=== PATIENT | female | born 1970 | race Caucasian/White ===

== ENCOUNTER 2016-09-14 10:16 | Emergency (ER) | payer OTHER, BC ==
[2016-09-14] MEDS ORDERED: Zofran 4 MG/2 ML VIAL IV ONE (11:08)
[2016-09-14] MEDS ORDERED: Hydromorphone 1 mg/ml Ampule IV ONE (11:08)
[2016-09-14] MEDS ORDERED: Sodium Chloride 0.9% 1000 ML 1,000 ML IV STA (11:08)
[2016-09-14] MEDS ORDERED: Zofran 4 MG/2 ML VIAL ONE (11:11)
[2016-09-14] MEDS ORDERED: Hydromorphone 1 mg/ml Ampule ONE (11:12)
[2016-09-14] MEDS ORDERED: Sodium Chloride 0.9% 1000 ML 1,000 ML ONE (11:12)
[2016-09-14] MEDS ORDERED: DUONEB 0.5-3 MG/3 ml Neb IH ONE ×2 (11:13→11:23)
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
[2016-09-14 11:31] LABS: BASOPHIL % 0.4 % (0.0-0.4); Eosinophil % 4.4 % (0.00-5.0); Granulocytes % 52.7 % (36.0-66.0); Lymphocytes % 27.7 % (24.0-44.0); Mean Cell Volume 83.9 fl (78-100); Mean Corpuscular Hemoglobin 27.7 pg (26-32); Mean Platelet Volume 10.8 fl (6-9.5); Monocytes % 14.8 % (0.0-12.0); Platelet Count 341 K/mm3 (150-450); Red Blood Count 5.02 M/mm3 (4.1-5.4); Red Cell Distribution Width 14.2 % (11.5-14.0); White Blood Count 6.9 K/mm3 (4.0-10.5)
[2016-09-14 12:12] LABS: ALBUMIN 3.3 g/dL (3.4-5.0); ALKALINE PHOSPHATASE 65 U/L (46-116); ANION GAP 11.8 MEQ/L (5-15); BLOOD UREA NITROGEN 14 mg/dL (9-20); CHLORIDE 106 mEq/L (98-107); Carbon Dioxide 25.6 mEq/L (21-32); Glucose 97 MG/DL (70-110); LIPASE 83 U/L (73-393); Potassium 4.3 mEq/L (3.5-5.1); SGOT/AST 28 U/L (15-37); SGPT/ALT 30 U/L (12-78); SODIUM 139 mEq/L (136-145); Total Protein 7.8 gm/dL (6.4-8.2)
[2016-09-14 12:13] LABS: TROPONIN 0.275 ng/ml (0.000-0.056)
[2016-09-14 12:37] VITALS: BP 151/78; PULSE 69
[2016-09-14 12:41] LABS: Bilirubin NEGATIVE (NEGATIVE); Blood 250 Ery/ul (0-5); COMPLETE URINE MICROSCOPIC? YES; Collection Type CATH; Glucose NEGATIVE (NEGATIVE); Leukocyte Esterase NEGATIVE (NEGATIVE)
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
[2016-09-14 12:48] LABS: Mucus MANY /HPF (NEGATIVE); WBC 0-2 /HPF (0-5)
[2016-09-14 12:49] LABS: Bacteria FEW /HPF (NEGATIVE); Epithelial Cells FEW /HPF (FEW)
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
[2016-09-14 13:07] VITALS: O2SAT 98
== END 2016-09-14 13:32 | disposition home or self-care (01) ==
LOC: ED 10:16
DX: S20.211D Contusion of right front wall of thorax, subsequent encounter (principal); S30.1XXD Contusion of abdominal wall, subsequent encounter; R07.81 Pleurodynia; R07.89 Other chest pain; V89.2XXS Person injured in unspecified motor-vehicle accident, traffic, sequela
CPT/HCPCS: 36000; 36415; 51702; 71260; 74177; 80053; 81000; 82150; 82550; 83690; 84484; 85025; 93005; 93041; 94640; 96360; 96374; 96375; 99284; J1170; J2405; A9270-GY

== ENCOUNTER 2021-09-10 20:19 | Observation (INO) | payer BC ==
[2021-09-10 21:16] LABS: Absolute Neutrophil Ct (ANC) 5.52 x10^3/uL (1.4-6.9); Basophil (Absolute #) 0.07 x10^3/uL (0-0.4); Eosinophil (Absolute #) 0.45 x10^3/uL (0-0.5); Hematocrit 41.9 % (35-47); Hemoglobin 13.6 g/dL (12.0-16.0); Lymphocyte (Absolute #) 2.06 x10^3/uL (1.0-4.6); Lymphocytes % 22.8 % (24.0-44.0); Mean Corpuscular Hemoglobin 27.3 pg (26-32); Mean Corpuscular Hgb Concent. 32.5 g/dL (32-36); Monocyte (Absolute #) 0.91 x10^3/uL (0.0-1.3); Monocytes % 10.1 % (0.0-12.0); Platelet Count 288 x10^3/uL (150-450); Red Blood Count 4.99 x10^6/uL (4.1-5.4)
--- NOTE | 2021-09-10 21:18 | ERPHSYRPT ---
- History of Present Illness Time Seen by Provider: 09/10/21 20:38 Source: patient Exam Limitations: no limitations Patient Subjective Stated Complaint: pt states she had hypertension on wednesday, states she has been feelin pain in abdomen and lower back, and feeling nauseat ed, states she had one bout of dark stool Triage Nursing Assessment: pt states she is having pain in abdomen at 5/20 Physician History: Patient is a 50-year-old female presents to our ED for evaluation of lower abdominal and low back pain. Patient also concerned with hypertension. Patient states that she stopped taking her blood pressure medication on her own. Patient states her blood pressure has been running normal and she figured she did not need the blood pressure medication anymore. Patient states her blood pressure was observed to be elevated on Wednesday. Patient then resumed her blood pressure medication. However since then she has been feeling weak. Fatigued. Patient lower abdominal pain was associated with a dark stool. Abdominal pain rated 5 out of 10. No trauma. No fever. Patient states her urine output is decreased. No vaginal discharge or pelvic pain. Patient denies history of the same. Patient voices no other complaints or concerns at this time. Timing/Duration: day(s) (2 days) Severity: moderate Modifying Factors: Improves With: nothing Associated Symptoms: weakness (Generalized weakness), No nausea, No vomiting (Loose stools. Patient's last bowel movement was dark patient states that look like charcoal.), No cough, No chills, No chest pain, No fever, No headaches, No loss of appetite, No syncope, No seizure Allergies/Adverse Reactions: No Known Drug Allergies Allergy (Unverified 09/14/16 10:40) Home Medications: Escitalopram Oxalate [Lexapro 10 MG] 10 mg PO DAILY 09/14/16 [History] Levothyroxine Sodium 150 Mcg [Synthroid 150 Mcg] 150 mcg PO DAILY 09/14/16 [History] norgestimate-ethinyl estradioL [Rph-Ox-Gsjjurxzu Tablet] 1 each PO UD 09/14/16 [History] Hx Tetanus, Diphtheria Vaccination/Date Given: Yes (up to date) Hx Influenza Vaccination/Date Given: No Hx Pneumococcal Vaccination/Date Given: No Travel Risk - International Travel Have you traveled outside of the country in past 3 weeks: No - Coronavirus Screening Are you exhibiting any of the following symptoms?: No Close contact with a COVID-19 positive Pt in past 14-21 Days: No - Vaccine Status Have you recieved a Covid-19 vaccination: Yes Privacy Attorney: Moderna - Vaccination Dates Date of 2cond Vaccination (if applicable): unknown - Review of Systems Constitutional: No Symptoms, No Fever, No Chills Eyes: No Symptoms Ears, Nose, & Throat: No Symptoms Respiratory: No Symptoms, No Cough, No Dyspnea Cardiac: No Symptoms, No Chest Pain, No Edema, No Syncope Abdominal/Gastrointestinal: No Symptoms, No Abdominal Pain, No Nausea, No Vomiting, No Diarrhea Genitourinary Symptoms: No Symptoms, No Dysuria Musculoskeletal: No Symptoms, No Back Pain, No Neck Pain Skin: No Symptoms, No Rash Neurological: No Symptoms, No Dizziness, No Focal Weakness, No Sensory Changes Psychological: No Symptoms Endocrine: No Symptoms Hematologic/Lymphatic: No Symptoms Immunological/Allergic: No Symptoms All Other Systems: Reviewed and Negative - Past Medical History Pertinent Past Medical History: Yes Endocrine Medical History: Hypothyroidism Psycho-Social History: Depression - Past Surgical History Past Surgical History: Yes Gastrointestinal: Hernia Repair Female Surgical History: Dilation & Curettage, Section - Social History Smoking Status: Former smoker Exposure to second hand smoke: No Drug Use: none Patient Lives Alone: No - Nursing Vital Signs Nursing Vital Signs: Initial Vital Signs Temperature 98.1 F 09/10/21 20:28 Pulse Rate 55 L 09/10/21 20:28 Respiratory Rate 20 09/10/21 20:28 Blood Pressure 192/93 09/10/21 20:28 O2 Sat by Pulse Oximetry 98 09/10/21 20:28 Pain Scale Pain Intensity 0 - Physical Exam General Appearance: no apparent distress, alert Eye Exam: PERRL/EOMI, eyes nml inspection Ears, Nose, Throat Exam: normal ENT inspection, TMs normal, pharynx normal, moist mucous membranes Neck Exam: normal inspection, non-tender, supple, full range of motion Respiratory Exam: normal breath sounds, lungs clear, airway intact, No respiratory distress Cardiovascular Exam: regular rate/rhythm, normal heart sounds, normal peripheral pulses Gastrointestinal/Abdomen Exam: soft, normal bowel sounds, No tenderness, No mass Back Exam: normal inspection, normal range of motion, No CVA tenderness, No vertebral tenderness Extremity Exam: normal inspection, normal range of motion, pelvis stable Neurologic Exam: alert, oriented x 3, cooperative, normal mood/affect, sensation nml, No motor deficits Skin Exam: normal color, warm, dry, No rash Lymphatic Exam: No adenopathy SpO2 Interpretation: normal SpO2: 98 O2 Delivery: Room Air - Course Nursing assessment & vital signs reviewed: Yes EKG Interpreted by Me: RATE (45), Sinus Luis Armando, NORMAL AXIS, NORMAL INTERVALS - CT Exams Abdomen/Pelvis CT Interpretation: Tele-radiologist Report (Small to moderate umbilical hernia containing some edematous omentum without bowel. Minimal diverticulosis without diverticulitis mildly prominent fluid in the small bowel without dilation suggestive of enteritis. Right kidney nonobstructing calyx stone) Ordered Tests: Active Orders 24 hr Category Date Time Status Collections Manager STAT Care 09/10/21 21:11 Active EKG-ER Only STAT Care 09/10/21 21:11 Active IV Insertion STAT Care 09/10/21 21:11 Active Pulse Oximetry (ED) STAT Care 09/10/21 21:11 Active ABDOMEN AND PELVIS W/0 CONTRAS [CT] Stat Exams 09/10/21 22:03 Taken CBC W DIFF Stat Lab 09/10/21 21:00 Completed CMP Stat Lab 09/10/21 21:00 Completed HCG,QUALITATIVE URINE Stat Lab 09/10/21 21:00 Completed TROPONIN Q3H Lab 09/10/21 21:00 Completed TROPONIN Q3H Lab 09/11/21 00:37 Received TROPONIN Q3H Lab 09/11/21 03:15 Ordered TROPONIN Q3H Lab 09/11/21 06:15 Ordered TROPONIN Q3H Lab 09/11/21 09:15 Ordered TSH [TSH, 3RD Generation] Stat Lab 09/10/21 21:00 Completed UA W/RFX CULTURE Stat Lab 09/10/21 21:00 Completed Medication Summary Generic Name Dose Route Start Last Admin Trade Name Freq PRN Reason Stop Dose Admin Sodium Chloride 1,000 mls @ 100 mls/hr 09/10/21 21:15 09/10/21 21:31 Sodium Chloride 0.9% 1000 Ml IV 10/10/21 21:14 100 mls/hr .Q10H SHAYE Administration Discontinued Medications Generic Name Dose Route Start Last Admin Trade Name Freq PRN Reason Stop Dose Admin Hydrocortisone Sodium Succinate 100 mg 09/10/21 23:43 09/10/21 23:53 Hydrocortisone Sod Succinate 100 Mg/Vial Vial IV 09/10/21 23:44 100 mg STAT ONE Administration Hydrocortisone Sodium Succinate Confirm 09/10/21 23:48 Hydrocortisone Sod Succinate 100 Mg/Vial Vial Administered 09/10/21 23:49 Dose 100 mg .ROUTE .STK-MED ONE Levothyroxine Sodium 300 mcg 09/10/21 23:51 09/11/21 00:08 Levothyroxine Sodium 200 Mcg/Vial Vial IV 09/10/21 23:52 200 mcg ONCE STA Administration Morphine Sulfate 2 mg 09/10/21 21:19 09/10/21 21:31 Morphine Sulfate 2 Mg/Ml Inj IV 09/10/21 21:20 2 mg STAT ONE Administration Morphine Sulfate Confirm 09/10/21 21:27 Morphine Sulfate 2 Mg/Ml Inj Administered 09/10/21 21:28 Dose 2 mg .ROUTE .STK-MED ONE Lab/Rad Data: Laboratory Result Diagrams 09/10/21 21:00 09/10/21 21:00 Laboratory Results 09/10/21 09/10/21 09/10/21 Range/Units 23:55 21:00 21:00 WBC (4.0-10.5) x10^3/uL RBC (4.1-5.4) x10^6/uL Hgb (12.0-16.0) g/dL Hct (35-47) % MCV (78-100) fL MCH (26-32) pg MCHC (32-36) g/dL RDW (11.5-14.0) % Plt Count (150-450) x10^3/uL MPV (7.5-11.0) fL Gran % (36.0-66.0) % Immature Gran % (Auto) (0.00-0.4) % Nucleat RBC Rel Count (0.00-0.1) % Eos # (Auto) (0-0.5) x10^3/uL Immature Gran # (Auto) (0.00-0.03) x10^3u/L Absolute Lymphs (auto) (1.0-4.6) x10^3/uL Absolute Monos (auto) (0.0-1.3) x10^3/uL Absolute Nucleated RBC (0.00-0.01) x10^3u/L Lymphocytes % (24.0-44.0) % Monocytes % (0.0-12.0) % Eosinophils % (0.00-5.0) % Basophils % (0.0-0.4) % Absolute Granulocytes (1.4-6.9) x10^3/uL Basophils # (0-0.4) x10^3/uL Sodium (137-145) mmol/L Potassium (3.5-5.1) mmol/L Chloride (98-107) mmol/L Carbon Dioxide (22-30) mmol/L Anion Gap (5-15) MEQ/L BUN (7-17) mg/dL Creatinine (0.52-1.04) mg/dL Estimated GFR ML/MIN Glucose (74-106) mg/dL Calcium (8.4-10.2) mg/dL Total Bilirubin (0.2-1.3) mg/dL AST (14-36) U/L ALT (0-35) U/L Alkaline Phosphatase (38-126) U/L Troponin I (0.000-0.034) ng/mL Serum Total Protein (6.3-8.2) g/dL Albumin (3.5-5.0) g/dL TSH 3rd Generation 10.200 H (0.47-4.68) mIU/L Urinalys Dipstick Clnc MAIN LAB Urine Color YELLOW (YELLOW) Urine Appearance CLEAR (CLEAR) Urine pH 5.5 (5-6) Ur Specific [place] 1.025 (1.005-1.025) POC Urine Protein Conf NEGATIVE (Negative) Urine Ketones NEGATIVE (NEGATIVE) Urine Nitrite NEGATIVE (NEGATIVE) Urine Bilirubin NEGATIVE (NEGATIVE) Urine Urobilinogen 0.2 (0-1) mg/dL Urine Leukocytes NEGATIVE (NEGATIVE) Urine WBC (Auto) 0-2 (0-5) /HPF Urine RBC (Auto) 0-2 (0-2) /HPF U Epithel Cells (Auto) RARE (FEW) /HPF Urine Bacteria (Auto) RARE (NEGATIVE) /HPF Urine RBC SMALL (0-5) Jared/ul Urine Mucus (Auto) SLIGHT (NEGATIVE) /HPF Ur Culture Indicated? NO Urine Glucose NEGATIVE (NEGATIVE) mg/dL Urine HCG, Qual (Negative) Influenza Type A Ag NEGATIVE (NEGATIVE) Influenza Type B Ag NEGATIVE (NEGATIVE) RSV (PCR) NEGATIVE (Negative) SARS-CoV-2 (PCR) POSITIVE A (NEGATIVE) 09/10/21 09/10/21 09/10/21 Range/Units 21:00 21:00 21:00 WBC 9.0 (4.0-10.5) x10^3/uL RBC 4.99 (4.1-5.4) x10^6/uL Hgb 13.6 (12.0-16.0) g/dL Hct 41.9 (35-47) % MCV 84.0 (78-100) fL MCH 27.3 (26-32) pg MCHC 32.5 (32-36) g/dL RDW 14.0 (11.5-14.0) % Plt Count 288 (150-450) x10^3/uL MPV 11.0 (7.5-11.0) fL Gran % 61.0 (36.0-66.0) % Immature Gran % (Auto) 0.3 (0.00-0.4) % Nucleat RBC Rel Count 0.0 (0.00-0.1) % Eos # (Auto) 0.45 (0-0.5) x10^3/uL Immature Gran # (Auto) 0.03 (0.00-0.03) x10^3u/L Absolute Lymphs (auto) 2.06 (1.0-4.6) x10^3/uL Absolute Monos (auto) 0.91 (0.0-1.3) x10^3/uL Absolute Nucleated RBC 0.00 (0.00-0.01) x10^3u/L Lymphocytes % 22.8 L (24.0-44.0) % Monocytes % 10.1 (0.0-12.0) % Eosinophils % 5.0 (0.00-5.0) % Basophils % 0.8 (0.0-0.4) % Absolute Granulocytes 5.52 (1.4-6.9) x10^3/uL Basophils # 0.07 (0-0.4) x10^3/uL Sodium 137 (137-145) mmol/L Potassium 4.1 (3.5-5.1) mmol/L Chloride 105 (98-107) mmol/L Carbon Dioxide 24 (22-30) mmol/L Anion Gap 13.1 (5-15) MEQ/L BUN 15 (7-17) mg/dL Creatinine 0.76 (0.52-1.04) mg/dL Estimated GFR > 60.0 ML/MIN Glucose 89 (74-106) mg/dL Calcium 9.0 (8.4-10.2) mg/dL Total Bilirubin 0.50 (0.2-1.3) mg/dL AST 35 (14-36) U/L ALT 27 (0-35) U/L Alkaline Phosphatase 88 (38-126) U/L Troponin I < 0.012 (0.000-0.034) ng/mL Serum Total Protein 7.7 (6.3-8.2) g/dL Albumin 4.1 (3.5-5.0) g/dL TSH 3rd Generation (0.47-4.68) mIU/L Urinalys Dipstick Clnc Urine Color (YELLOW) Urine Appearance (CLEAR) Urine pH (5-6) Ur Specific [place] (1.005-1.025) POC Urine Protein Conf (Negative) Urine Ketones (NEGATIVE) Urine Nitrite (NEGATIVE) Urine Bilirubin (NEGATIVE) Urine Urobilinogen (0-1) mg/dL Urine Leukocytes (NEGATIVE) Urine WBC (Auto) (0-5) /HPF Urine RBC (Auto) (0-2) /HPF U Epithel Cells (Auto) (FEW) /HPF Urine Bacteria (Auto) (NEGATIVE) /HPF Urine RBC (0-5) Jared/ul Urine Mucus (Auto) (NEGATIVE) /HPF Ur Culture Indicated? Urine Glucose (NEGATIVE) mg/dL Urine HCG, Qual (Negative) Influenza Type A Ag (NEGATIVE) Influenza Type B Ag (NEGATIVE) RSV (PCR) (Negative) SARS-CoV-2 (PCR) (NEGATIVE) 09/10/21 Range/Units 21:00 WBC (4.0-10.5) x10^3/uL RBC (4.1-5.4) x10^6/uL Hgb (12.0-16.0) g/dL Hct (35-47) % MCV (78-100) fL MCH (26-32) pg MCHC (32-36) g/dL RDW (11.5-14.0) % Plt Count (150-450) x10^3/uL MPV (7.5-11.0) fL Gran % (36.0-66.0) % Immature Gran % (Auto) (0.00-0.4) % Nucleat RBC Rel Count (0.00-0.1) % Eos # (Auto) (0-0.5) x10^3/uL Immature Gran # (Auto) (0.00-0.03) x10^3u/L Absolute Lymphs (auto) (1.0-4.6) x10^3/uL Absolute Monos (auto) (0.0-1.3) x10^3/uL Absolute Nucleated RBC (0.00-0.01) x10^3u/L Lymphocytes % (24.0-44.0) % Monocytes % (0.0-12.0) % Eosinophils % (0.00-5.0) % Basophils % (0.0-0.4) % Absolute Granulocytes (1.4-6.9) x10^3/uL Basophils # (0-0.4) x10^3/uL Sodium (137-145) mmol/L Potassium (3.5-5.1) mmol/L Chloride (98-107) mmol/L Carbon Dioxide (22-30) mmol/L Anion Gap (5-15) MEQ/L BUN (7-17) mg/dL Creatinine (0.52-1.04) mg/dL Estimated GFR ML/MIN Glucose (74-106) mg/dL Calcium (8.4-10.2) mg/dL Total Bilirubin (0.2-1.3) mg/dL AST (14-36) U/L ALT (0-35) U/L Alkaline Phosphatase (38-126) U/L Troponin I (0.000-0.034) ng/mL Serum Total Protein (6.3-8.2) g/dL Albumin (3.5-5.0) g/dL TSH 3rd Generation (0.47-4.68) mIU/L Urinalys Dipstick Clnc Urine Color (YELLOW) Urine Appearance (CLEAR) Urine pH (5-6) Ur Specific [place] (1.005-1.025) POC Urine Protein Conf (Negative) Urine Ketones (NEGATIVE) Urine Nitrite (NEGATIVE) Urine Bilirubin (NEGATIVE) Urine Urobilinogen (0-1) mg/dL Urine Leukocytes (NEGATIVE) Urine WBC (Auto) (0-5) /HPF Urine RBC (Auto) (0-2) /HPF U Epithel Cells (Auto) (FEW) /HPF Urine Bacteria (Auto) (NEGATIVE) /HPF Urine RBC (0-5) Jared/ul Urine Mucus (Auto) (NEGATIVE) /HPF Ur Culture Indicated? Urine Glucose (NEGATIVE) mg/dL Urine HCG, Qual NEGATIVE (Negative) Influenza Type A Ag (NEGATIVE) Influenza Type B Ag (NEGATIVE) RSV (PCR) (Negative) SARS-CoV-2 (PCR) (NEGATIVE) - Progress Progress: improved Progress Note: Case discussed with Dr. Frank covering Dr. Ross. Dr. Frank accepts admission to observation. Patient is COVID-positive. Patient will be admitted to the COVID unit. TSH 10.2 and spite of taking Synthroid. Patient has profound generalized weakness. This is likely due to hypothyroidism. However COVID positivity may be contributing to her generalized weakness or may have exacerbated the underlying hypothyroidism. However she has no other manifestations of viral syndrome. Patient received Solu-Cortef as well as a 200 mcg dose of Synthroid. Patient will be admitted to the COVID unit. Plan of care discussed with patient. She agrees to admission [facility] for further evaluation and treatment. She voices no other complaints concerns at this time. Portions of this note were created with voice recognition technology. There may be grammatical, spelling, punctuation or sound alike errors 09/11/21 01:[address] Akshat Will see patient in: hospital (observation) Counseled pt/family regarding: drug and/or alcohol abuse, lab results, diagnosis - Departure Departure Disposition: Observation Clinical Impression: Hypothyroidism, Hypertension, Bradycardia, Generalized weakness, Nephrolithiasi s, Diverticulosis, Enteritis, Umbilical hernia, SARS-CoV-2 positive Condition: Stable Critical Care Time: No Referrals: MAGDALENO ROSS [Primary Care Provider] - Follow up/PCP as directed
[2021-09-10] MEDS ORDERED: MORPHINE SULFATE 2 MG INJ IV ONE (21:19)
[2021-09-10 21:25] LABS: Appearance CLEAR (CLEAR); Bacteria RARE /HPF (NEGATIVE); Epithelial Cells RARE /HPF (FEW); Mucus SLIGHT /HPF (NEGATIVE); RBC 0-2 /HPF (0-2); WBC 0-2 /HPF (0-5)
[2021-09-10 21:26] LABS: Bilirubin NEGATIVE (NEGATIVE); Dipstick done @ ? MAIN LAB; Glucose NEGATIVE (NEGATIVE); Ketones NEGATIVE (NEGATIVE); Nitrite NEGATIVE (NEGATIVE); Ph 5.5 (5-6); Protein,Urine Dip NEGATIVE (Negative); RBC SMALL Ery/ul (0-5); Specific Gravity 1.025 (1.005-1.025); Urobilinogen 0.2 mg/dL (0-1)
[2021-09-10 21:27] LABS: Urine Cultured Indicated? NO
[2021-09-10] MEDS ORDERED: MORPHINE SULFATE 2 MG INJ ONE (21:27)
[2021-09-10] MEDS: Sodium Chloride 0.9% 1000 ML 1,000 ML IV SCH (21:31)
[2021-09-10 21:32] LABS: ALBUMIN 4.1 g/dL (3.5-5.0); ALKALINE PHOSPHATASE 88 U/L (38-126); ANION GAP 13.1 MEQ/L (5-15); BLOOD UREA NITROGEN 15 mg/dL (7-17); CHLORIDE 105 mmol/L (98-107); Carbon Dioxide 24 mmol/L (22-30); Creatinine 1 0.76 mg/dL (0.52-1.04); EST GLOMERULAR FILTRATION RATE > 60.0 ML/MIN; Glucose 89 mg/dL (74-106); Potassium 4.1 mmol/L (3.5-5.1); SGOT/AST 35 U/L (14-36); SGPT/ALT 27 U/L (0-35); SODIUM 137 mmol/L (137-145); Total Protein 7.7 g/dL (6.3-8.2)
[2021-09-10] MEDS ORDERED: solu-CORTEF 100MG IV ONE (23:43)
[2021-09-10] MEDS ORDERED: solu-CORTEF 100MG ONE (23:48)
[2021-09-10] MEDS ORDERED: Synthroid 200 MCG INJECTION IV STA (23:51)
[2021-09-11 00:43] LABS: INFLUENZA A NEGATIVE (NEGATIVE); INFLUENZA B NEGATIVE (NEGATIVE); RESPIRATORY SYNCTIAL VIRUS NEGATIVE (Negative)
[2021-09-11 00:47] LABS: SARS-CoV-2 Xpert Express POSITIVE (NEGATIVE)
[2021-09-11] MEDS ORDERED: ENOXAPARIN SODIUM SQ ONE (01:13)
[2021-09-11] MEDS ORDERED: MORPHINE SULFATE 4 MG INJ IV PRN (01:35)
[2021-09-11] MEDS ORDERED: TYLENOL 325 MG PO PRN (01:35)
[2021-09-11 03:52] LABS: ALBUMIN 3.8 g/dL (3.5-5.0); ALKALINE PHOSPHATASE 84 U/L (38-126); ANION GAP 12.7 MEQ/L (5-15); BLOOD UREA NITROGEN 13 mg/dL (7-17); CHLORIDE 103 mmol/L (98-107); Calcium 9.2 mg/dL (8.4-10.2); Carbon Dioxide 25 mmol/L (22-30); Creatinine 1 0.77 mg/dL (0.52-1.04); EST GLOMERULAR FILTRATION RATE > 60.0 ML/MIN; Glucose 129 mg/dL (74-106); Potassium 4.2 mmol/L (3.5-5.1); SGOT/AST 29 U/L (14-36); SGPT/ALT 27 U/L (0-35); SODIUM 137 mmol/L (137-145)
[2021-09-11 05:12] LABS: Hemoglobin 13.9 g/dL (12.0-16.0); Mean Cell Volume 83.8 fL (78-100); Mean Corpuscular Hemoglobin 27.1 pg (26-32); Mean Corpuscular Hgb Concent. 32.3 g/dL (32-36); Mean Platelet Volume 11.1 fL (7.5-11.0); Platelet Count 291 x10^3/uL (150-450); Red Blood Count 5.13 x10^6/uL (4.1-5.4); Red Cell Distribution Width 14.1 % (11.5-14.0); White Blood Count 8.6 x10^3/uL (4.0-10.5)
[2021-09-11] MEDS: Sodium Chloride 0.9% 1000 ML 1,000 ML IV SCH ×2 (06:44→16:59)
[2021-09-11 07:42] VITALS: O2SAT 97
--- NOTE | 2021-09-11 08:44 | XRAY ---
Indication: Right abdomen/flank pain. Nausea. Multiple contiguous axial images obtained through the abdomen and pelvis without contrast. Comparison: September 14, 2016. Lung bases clear. Heart borderline enlarged. Noncontrasted stomach and bowel loops are nonobstructed. A few jejunal bowel loops now demonstrates mild circumferential wall thickening favoring enteritis. Appendix not visualized. No free fluid/air. Minimal sigmoid diverticulosis without diverticulitis. New nonobstructing right renal punctate calculus. Remaining liver, gallbladder, pancreas, spleen, adrenal glands, kidneys, ureters, bladder, and uterus are unremarkable for noncontrast exam. Minimal aortoiliac calcifications without AAA. Osseous structures intact again with bilateral L5 spondylolysis with very minimal anterolisthesis. Minimally enlarging small periumbilical fatty ventral hernia. Impression: 1. New mild enteritis without complications. Minimal diverticulosis without diverticulitis 2. New nonobstructing right renal punctate calculus. 3. Again chronic findings including fatty periumbilical ventral hernia and L5 spondylolysis with very minimal listhesis. Comment: Preliminary interpretation made by [facility]. No critical discrepancy.
[2021-09-11] MEDS ORDERED: DESYREL 50 MG PO PRN (09:30)
[2021-09-11] MEDS ORDERED: Lotensin PO SCH (10:00)
[2021-09-11] MEDS ORDERED: ENOXAPARIN SODIUM SQ SCH (10:00)
[2021-09-11] MEDS ORDERED: Pepcid 20 MG VIAL IV SCH (10:00)
[2021-09-11] MEDS ORDERED: Lexapro PO SCH (10:00)
[2021-09-11] MEDS ORDERED: SYNTHROID 150 MCG PO SCH (10:00)
[2021-09-11 16:35] VITALS: BP 146/81; PULSE 54
--- NOTE | 2021-09-12 12:45 | ECHO ---
DATE OF PROCEDURE: 09/11/2021 CLINICAL INFORMATION: Bradycardia. The M-mode 2D, and Doppler echocardiogram including color flow Doppler shows the left ventricle is normal in size. There is no thrombus present. The heart rate is 45 beats/minute. The wall thickness is normal. There is normal contractility of the left ventricle. The ejection fraction is calculated to be 66%. There is evidence of possible impaired left ventricular relaxation. The right ventricle is grossly normal. The left atrium is normal in size. The interatrial septum is intact. The right atrium is normal. The aortic valve opens well. There is no aortic regurgitation. There is mitral valve leaflet thickening associated with mild mitral regurgitation. There is mild tricuspid regurgitation. The right ventricular systolic pressure is calculated to be 32 mm of [place]. The pulmonic valve is not well visualized. The aortic root is normal. There is a small posterior pericardial effusion present. IMPRESSION: 1) NORMAL CONTRACTILITY OF THE LEFT VENTRICLE. 2) POSSIBLE IMPAIRED LEFT VENTRICULAR RELAXATION. 3) MILD MITRAL REGURGITATION. 4) MILD TRICUSPID REGURGITATION. 5) MILD PULMONARY HYPERTENSION. 6) MILD POSTERIOR PERICARDIAL EFFUSION.
--- NOTE | 2021-10-07 11:27 | SSS ---
DISCHARGE DIAGNOSES: 1) HYPERTENSION. 2) POSITIVE FOR COVID. HISTORY: The patient is a 50-year-old white female who presented to the emergency room with complaints of lower abdominal pain. She is concerned about hypertension. She had stopped taking her medication on her own. The patient reports that she noted that the blood pressure had been elevated on the Wednesday prior to admission. She appeared weak and fatigued. The patient reports exam was associated with dark stool, abdominal discomfort was rated at 5 out of 10 initially. PAST MEDICAL/SURGICAL HISTORY: Significant for hypothyroidism and depression. The patient previously had hernia repair, D&C and section in the past. HOME MEDICATIONS: Includes Lexapro 10 mg a day, Synthroid 150 mcg daily. She takes a control pill. ALLERGIES: NKDA. PHYSICAL EXAMINATION: The patient's vital signs on admission showed temperature 98.1F, pulse 55, respiratory rate 20 and blood pressure 192/93. O2 saturation 98%. HEENT: Normocephalic, atraumatic. Pupils equal round reactive to light. Extraocular movements intact. Oropharynx is pink and moist. NECK: Supple without lymphadenopathy, thyromegaly or JVD. CHEST: Clear to auscultation. HEART: Regular rate and rhythm without murmurs, rubs or gallops. ABDOMEN: Soft. No palpable masses. EXTREMITIES: Without cyanosis, clubbing or edema. NEUROLOGIC: The patient is alert and oriented x3. No focal deficits noted. LAB DATA AND TESTS: Revealed CT evaluation showing some moderate to small umbilical hernia containing some edematous omentum without bowel. There was minimal diverticulosis without diverticulitis and mild prominent fluid in the small bowel without dilation suggestive of enteritis. There was a nonobstructive kidney stone in the right kidney calyx. The patient's hemoglobin was 13.6, white count 9.6, PLT count 288,000. Electrolytes were normal. BUN 15, creatinine 0.76. UA was normal. Her TSH somewhat elevated at 10.2. She was negative for influenza, respiratory syncytial virus but however positive for COVID. The patient's troponin was less than 0.012. HCG was negative. HOSPITAL COURSE: The patient was admitted to the medicine arreaga for observation with hypertension, abdominal pain and the presence of COVID. The patient's hypertension was under control during her stay in the hospital. It was felt the patient was feeling much better and ready for discharge home by the next morning. It was felt that abdominal pain might possibly be the COVID. With her hypertension it was felt that the patient should be treated Paxlovid as an outpatient. She did not require hospitalization otherwise as the patient was essentially back to feeling nearly normal by the next morning. Again, the patient was discharged home on the Paxlovid and her usual home medications with instructions to follow up with her primary care provider in the next week.
== END 2021-09-11 20:38 | disposition home or self-care (01) ==
LOC: ED 20:19 → MED SURG 09-11 01:30
PROVIDERS: ADMIT Family Medicine; ATTEND Family Medicine
DX: I10 Essential (primary) hypertension (principal); U07.1 COVID-19; E03.9 Hypothyroidism, unspecified; R00.1 Bradycardia, unspecified; K42.9 Umbilical hernia without obstruction or gangrene; F32.A Depression, unspecified; Z79.899 Other long term (current) drug therapy; Z20.828 Contact with and (suspected) exposure to other viral communicable diseases
CPT/HCPCS: 0241U; 36000; 36415; 74176; 80053; 81015; 81025; 84436; 84443; 84484; 85025; 85027; 93005; 93041; 93268; 93306; 94760; 96374; 96375; 99284; G0378; Q3014; J1650; J1720; J2270; A9270-GY